=== PATIENT | male | born 1970 | race African-American/Black ===

== ENCOUNTER 2020-07-05 08:48 | Emergency (ER) | payer BC ==
[~2020-07-05] VITALS: Ht 190.5 cm; Wt 79.4 kg
--- NOTE | 2020-07-05 09:10 | NUR ---
50yrs male walkig in ed c/o abdominale pain for days abdomine soft tender to touch dineses n/v hx pancritetes and etoh [facility] with rx didnot got medictim
[2020-07-05] MEDS ORDERED: IV NORMAL SALINE 1000 ML BAG IV ONE ×2 (09:45→11:30)
[2020-07-05] MEDS ORDERED: PANTOPRAZOLE SODIUM 40 MG VIAL IV ONE (09:45)
[2020-07-05] MEDS ORDERED: ONDANSETRON 4 MG/2 ML VIAL IV ONE (09:45)
[2020-07-05] MEDS ORDERED: ONDANSETRON 4 MG/2 ML VIAL ONE (10:44)
[2020-07-05] MEDS ORDERED: PANTOPRAZOLE SODIUM 40 MG VIAL ONE (10:44)
[2020-07-05 10:45] LABS: *BILIRUBIN,URIN NEGATIVE (NEGATIVE); *BLOOD, URINE NEGATIVE (NEGATIVE); *CLARITY,URINE CLEAR (CLEAR); *COLOR,URINE YELLOW (YELLOW); *KETONES,URINE TRACE (NEGATIVE); *UROBILINOGEN,URINE 0.2 E.U./dl (NORMAL); LEUKOCYTE ESTERASE ,URINE NEGATIVE (NEGATIVE); NITRITE, URINE NEGATIVE (NEGATIVE); PH,URINE 5.5 (5.0-8.0)
[2020-07-05 10:48] LABS: UGLUCOSE 2+ (NEGATIVE)
[2020-07-05 10:57] LABS: BASOPHILS % (AUTO) 0.6 % (0.0-2.0); EOSINOPHILS % (AUTO) 0.3 % (0.0-7.0); HEMATOCRIT 35.6 % (36.7-47.1); HEMOGLOBIN 12.1 g/dL (12.5-16.3); LYMPHOCYTES # (AUTO) 2.3 K/uL (20.0-40.0); LYMPHOCYTES % (AUTO) 33.9 % (20.5-51.5); MEAN CORPUSCULAR HEMOGLOBIN 29.1 uug (23.8-33.4); MEAN CORPUSCULAR HGB CONC 34 g/dL (32.5-36.3); MEAN CORPUSCULAR VOLUME 85.6 fL (73.0-96.2); MONOCYTES # (AUTO) 0.6 K/uL (2.0-10.0); MONOCYTES % (AUTO) 8.8 % (0.0-11.0); NEUTROPHILS # (AUTO) 3.8 K/uL (1.8-8.9); NEUTROPHILS % (AUTO) 56.4 % (38.5-71.5); PLATELET COUNT (AUTO) 140 K/uL (152-348); RED BLOOD CELL COUNT(AUTO) 4.16 MIL/uL (4.06-5.63); WHITE BLOOD COUNT (AUTO) 6.7 K/uL (3.6-10.2)
[2020-07-05 11:13] LABS: BILIRUBIN,DIRECT 0.2 mg/dL (0.0-0.2); BILIRUBIN,TOTAL 0.5 mg/dL (0.2-1.0); CREATININE 1.3 mg/dL (0.6-1.3); TOTAL PROTEIN, SERUM 6.9 g/dL (6.4-8.2)
[2020-07-05] MEDS ORDERED: LIDOCAINE VISCUS 2% 15 ML UDC MM ONE (11:30)
[2020-07-05] MEDS ORDERED: MAG HYDROX/AL HYDROX/SIMETH 30 ML LIQUID UDC PO ONE (11:30)
[2020-07-05] MEDS ORDERED: METFORMIN HCL 500 MG TABLET PO ONE (11:30)
[2020-07-05] MEDS ORDERED: METFORMIN HCL 850 MG TABLET ONE (12:37)
[2020-07-05] MEDS ORDERED: METFORMIN HCL 500 MG TABLET ONE (12:37)
[2020-07-05] MEDS ORDERED: LIDOCAINE VISCUS 2% 15 ML UDC ONE (12:37)
[2020-07-05] MEDS ORDERED: MAG HYDROX/AL HYDROX/SIMETH 30 ML LIQUID UDC ONE (12:39)
[2020-07-05 13:08] LABS: BACTERIA,URINE NONE SEEN /HPF (NONE SEEN); MUCUS,URINE FEW /LPF (0-FEW); RBC,URINE 0-3 /HPF (0-3); SQUAMOUS EPITHELIAL CELL,UR NONE SEEN /HPF (NONE SEEN); URINE AMORPHOUS URATE FEW /HPF; WBC,URINE 0-3 /HPF (0-3)
--- NOTE | 2020-07-05 14:00 | NUR ---
D/C INSTRACTIUON GIVEN BY DR. COPPOLA AND [facility]
[2020-07-05 19:15] VITALS: BP 153/73
== END 2020-07-05 14:00 | disposition home or self-care (01) ==
LOC: ER 08:48
DX: K29.20 Alcoholic gastritis without bleeding (principal); F10.10 Alcohol abuse, uncomplicated; D69.6 Thrombocytopenia, unspecified; E11.65 Type 2 diabetes mellitus with hyperglycemia; D64.9 Anemia, unspecified; R03.0 Elevated blood-pressure reading, without diagnosis of hypertension
CPT/HCPCS: 36415; 80048; 80076; 81001; 82962; 83690; 84484; 85025; 93005; 96361; 96374; 96375; 99284; C9113; J2405; 70030-TC; A4663; J7030